=== PATIENT | female | born 1970 | race Caucasian/White ===

== ENCOUNTER 2024-10-28 23:19 | Emergency (ER) | payer OTHER ==
[2024-10-29] MEDS: LORazepam 1 MG Tab PO ONE (00:52)
== END 2024-10-29 02:24 | disposition home or self-care (01) ==
LOC: JP.ED 23:19
DX: I11.9 Hypertensive heart disease without heart failure (principal); F41.9 Anxiety disorder, unspecified; Z88.8 Allergy status to other drugs, medicaments and biological substances; Z79.899 Other long term (current) drug therapy
CPT/HCPCS: 99283; A9270